=== PATIENT | female | born 1995 | race Two or more races ===

== ENCOUNTER 2018-03-03 12:35 | Emergency (ER) | payer OTHER ==
[~2018-03-03] VITALS: Ht 172.7 cm; Wt 81.6 kg
[2018-03-03 12:54] VITALS: BP 112/83
[2018-03-03] MEDS ORDERED: LORA1TAB47 PO (13:06)
[2018-03-03] MEDS ORDERED: FLUT100D IH (13:06)
--- NOTE | 2018-03-03 13:06 | PHYS DOC ---
Past History Past Medical History: No Pertinent History Past Surgical History: No Surgical History Smoking: Non-smoker Alcohol Use: Rarely Drug Use: None Adult General Chief Complaint Chief Complaint: ALLERGIES [facility] Patient is a 23 year old female who presents with complaining of intermittent episodes of nasal congestion and was at his right eyes for the last 6 months that getting more constant for the last 1 month. Patient complaining of nasal congestion, right eye burning sensation and tearing without yellow discharge, dry cough and mild shortness of breath patient denies taking any over-the- counter medication or seeking medical attention. Patient denies history of previous episodes of allergic symptom and states she moved to a house with concern for mold. Review of Systems Review of Systems Constitutional: Denies fever or chills [] Eyes: Denies change in visual acuity, reports right redness and tearing without discharge HENT: Reports nasal congestion, denies sore throat Respiratory: Reports cough and shortness of breath Cardiovascular: No additional information not addressed in HPI [] GI: Denies abdominal pain, nausea, vomiting, bloody stools or diarrhea [] : Denies dysuria or hematuria [] Musculoskeletal: Denies back pain or joint pain [] Integument: Denies rash or skin lesions [] Neurologic: Denies headache, focal weakness or sensory changes [] Endocrine: Denies polyuria or polydipsia [] All other systems were reviewed and found to be within normal limits, except as documented in this note. Allergies Allergies Allergies Coded Allergies Type Severity Reaction Last Updated Verified No Known Drug Allergies 03/03/18 No Physical Exam Physical Exam Constitutional: Well developed, well nourished, mild distress, non-toxic appearance. [] HENT: Normocephalic, atraumatic, bilateral external ears normal, oropharynx moist, no oral exudates, nasal congestion. [] Eyes: PERRLA, EOMI, right conjunctival mild erythema, no discharge. [] Neck: Normal range of motion, no tenderness, supple, no stridor. [] Cardiovascular:Heart rate regular rhythm, no murmur [] Lungs & Thorax: Bilateral breath sounds clear to auscultation [] Skin: Warm, dry, no erythema, no rash. [] Back: No tenderness, no CVA tenderness. [] Extremities: No tenderness, no cyanosis, no clubbing, ROM intact, no edema. [] Neurologic: Alert and oriented X 3, normal motor function, normal sensory function, no focal deficits noted. [] Psychologic: Affect normal, judgement normal, mood normal. [] Current Patient Data Vital Signs Vital Signs Date Time Temp Pulse Resp B/P (MAP) Pulse Ox O2 Delivery O2 Flow Rate FiO2 03/03/18 12:54 98.4 69 16 96 Room Air EKG EKG [] Radiology/Procedures Radiology/Procedures [] Course & Med Decision Making Course & Med Decision Making discharge: I've spoken with the patient and/or caregivers. I've explained the patient's condition, diagnosis and treatment plan based on information available to me at this time. I've answered the patient's and/or caregivers questions and addressed any concerns. The patient and/or caregivers have a good understanding the patient's diagnosis, condition and treatment plan as can be expected at this point. Vital signs have been stabilized. The patient's condition is stable for discharge from the emergency department. The patient will pursue further outpatient evaluation with her primary care provider or other designated consulting physician as outlined in the discharge instructions. Patient and/or caregivers are agreeable to this plan of care and follow-up instructions have been explained in detail. The patient and/or caregivers have received these instructions in written format and expressed understanding of these discharge instructions. The patient and her caregivers are aware that if any significant change in condition or worsening of symptoms should prompt him to immediately return to this of the closest emergency department. If an emergent department is not readily available I would encourage him to call 911. Dragon Disclaimer Dragon Disclaimer This electronic medical record was generated, in whole or in part, using a voice recognition dictation system. Departure Departure: Impression: Primary Impression: Seasonal allergies Disposition: HOME, SELF-CARE (at 1302) Condition: STABLE Referrals: PCP,NO (PCP) Patient Instructions: Allergic Conjunctivitis, Allergic Rhinitis Additional Instructions: Drink plenty of liquids Follow-up with your primary care physician in 3-5 days Return to ER if not getting better Scripts Fluticasone Propionate (FLOVENT 100MCG DISKUS) 100 Mcg Disk.w.dev 1 PUFF IH BID for allergy, #1 INHALER 0 Refills Prov: MARIA EUGENIA JONES MD 03/03/18 Loratadine/Pseudoephedrine (CLARITIN-D 12 HOUR TABLET) 1 Each Tab.er.12h 1 TAB PO BID for allergy, #40 TAB Prov: MARIA EUGENIA JONES MD 03/03/18 MARIA EUGENIA JONES MD Mar 03, 2018 13:06
== END 2018-03-03 13:14 | disposition home or self-care (01) ==
LOC: ER 12:35
DX: J30.2 Other seasonal allergic rhinitis (principal)
CPT/HCPCS: 99283

== ENCOUNTER 2018-08-16 03:47 | Emergency (ER) | payer OTHER ==
[~2018-08-16] VITALS: Ht 167.6 cm; Wt 81.6 kg
[~2018-08-16 03:47] MED LIST: FLUT100D IH; LORA1TAB47 PO
[2018-08-16 04:07] VITALS: BP 125/76
--- NOTE | 2018-08-16 04:08 | PHYS DOC ---
Past History Past Medical History: No Pertinent History (LISA THACKER Jr., DO) Past Surgical History: No Surgical History (LISA THACKER Jr., DO) Smoking: Non-smoker Alcohol Use: Rarely Drug Use: None (LISA THACKER Jr., DO) Adult General Chief Complaint Chief Complaint: ABDOMINAL PAIN [facility] HPI Patient is a 23-year-old female who presents with complaint of lower abdominal/ pelvic pain for the last couple of days. Patient states she has had nausea but no vomiting. Currently she rates pain to be a 6 out of 10 and states that at its worse it's been an 8 out of 10. She describes pain as crampy. She denies any diarrhea. She also denies any fever. Patient states that nothing seems to really make the pain better or worse. (LISA THACKER Jr., DO) Review of Systems Review of Systems Constitutional: Denies fever or chills [] Respiratory: Denies cough or shortness of breath [] Cardiovascular: No additional information not addressed in HPI [] GI: Complains of lower abdominal pain/cramping with nausea. Denies vomiting or diarrhea [] : Denies dysuria or hematuria [] Musculoskeletal: Denies back pain or joint pain [] All other systems were reviewed and found to be within normal limits, except as documented in this note. (LISA THACKER Jr., DO) Allergies Allergies Allergies Coded Allergies Type Severity Reaction Last Updated Verified No Known Drug Allergies 03/03/18 No (LISA THACKER Jr., DO) Physical Exam Physical Exam Constitutional: Well developed, well nourished, no acute distress, non-toxic appearance. [] HENT: Normocephalic, atraumatic, bilateral external ears normal, oropharynx moist, no oral exudates, nose normal. [] Eyes: PERRLA, EOMI, conjunctiva normal, no discharge. [] Neck: Normal range of motion, no tenderness, supple, no stridor. [] Cardiovascular:Heart rate regular rhythm, no murmur [] Lungs & Thorax: Bilateral breath sounds clear to auscultation [] Abdomen: Bowel sounds normal, soft, with mild suprapubic tenderness. [] Skin: Warm, dry, no erythema, no rash. [] Extremities: No tenderness, no cyanosis, no clubbing, ROM intact. [] Neurologic: Alert and oriented X 3, no focal deficits noted. [] (LISA THACKER Jr., DO) EKG EKG [] (LISA THACKER Jr., DO) Radiology/Procedures Radiology/Procedures [] (LISA THACKER Jr., DO) Course & Med Decision Making Course & Med Decision Making Pertinent Labs and Imaging studies reviewed. (See chart for details) [] (LISA THACKER Jr., DO) Course & Med Decision Making Emergency department he experienced downtime with the computer system during this patient's stay. CT official report is available at this time. The radiologist called me that the preliminary interpretation of ruptured hemorrhagic cyst of the ovary. I discussed this patient with [employer]OVE BOTTOM WORKER, Dr. Ta and he requested a repeat H&H. Repeat H&H was 0.9 g/dL lower than the original. It was his opinion that the patient appeared to be stable enough for discharge. She can follow up outpatient with her [employer]ER. The patient did have some pain requiring 2 mg of morphine. We'll discharge her with a prescription of Smackover 5/325. I stressed that if her condition worsens in any way, she should return to the emergency department. She is stated verbal understanding. She is comfortable with discharge at this time. (HELDER ROBINS DO) Dragon Disclaimer Dragon Disclaimer This electronic medical record was generated, in whole or in part, using a voice recognition dictation system. (LISA THACKER Jr., DO) Departure Departure: Impression: Primary Impression: Hemorrhagic cyst of ovary Disposition: 01 HOME, SELF-CARE Condition: STABLE Referrals: PCP,UNKNOWN (PCP) Patient Instructions: Ovarian Cyst, Olcf-hc-Szcr LISA THACKER Jr., DO Aug 16, 2018 04:08 HELDER ROBINS DO Aug 16, 2018 08:40
[2018-08-16] MEDS ORDERED: ONDANSETRON PF 4 MG/2 ML VIAL. IV ONE ×2 (04:15→08:30)
[2018-08-16] MEDS ORDERED: IV NORMAL SALINE 1,000ML 1,000 ML IV SCH (04:15)
[2018-08-16] MEDS ORDERED: IOHEXOL 300 MG/ML 75 ML VIAL. ONE ×2 (05:59→06:30)
[2018-08-16 08:13] LABS: ALBUMIN 3.4 g/dL (3.4-5.0); ALBUMIN/GLOBULIN RATIO 0.9 (1.0-1.7); CALCIUM 8.6 mg/dL (8.5-10.1); CREATININE 1.1 mg/dL (0.6-1.0); GFR 61.6; POTASSIUM 3.4 mmol/L (3.5-5.1); TOTAL BILIRUBIN 1.2 mg/dL (0.2-1.0); TOTAL PROTEIN 7.2 g/dL (6.4-8.2)
[2018-08-16] MEDS ORDERED: MORPHINE SULFATE 4 MG/ML DISP.SYRIN. IV ONE (08:30)
[2018-08-16] MEDS ORDERED: MORPHINE SULFATE 2 MG/ML DISP.SYRIN. IV ONE (08:30)
[2018-08-16 08:39] LABS: HEMATOCRIT 33.9 % (36.0-47.0); HEMOGLOBIN 11.4 g/dL (12.0-15.5)
[2018-08-16] MEDS ORDERED: HYDROcodone/APAP 5/325MG 1 TAB TABLET ONE (08:43)
[2018-08-16] MEDS ORDERED: ONDANSETRON ODT 4 MG TAB.RAPDIS ONE (08:43)
[2018-08-16] MEDS ORDERED: LORazepam 1 MG TABLET PO ONE (08:45)
[2018-08-16 08:48] LABS: BASO # 0.1 x10^3/uL (0.0-0.2); BASO % 1 % (0-3); EOS # 0.2 x10^3/uL (0.0-0.7); EOS % 2 % (0-3); HEMATOCRIT 35.5 % (36.0-47.0); HEMOGLOBIN 12.3 g/dL (12.0-15.5); LYMPH # 2.5 x10^3/uL (1.0-4.8); LYMPH % 23 % (24-48); MEAN CORPUSCULAR HEMOGLOBIN 30 pg (25-35); MEAN CORPUSCULAR HGB CONC 35 g/dL (31-37); MEAN CORPUSCULAR VOLUME 85 fL (79-100); MONO # 0.7 x10^3/uL (0.0-1.1); MONO % 7 % (0-9); NEUT # 7.2 x10^3uL (1.8-7.7); NEUT % 67 % (31-73); PLATELET COUNT 317 x10^3/uL (140-400); RED BLOOD COUNT 4.17 x10^6/uL (3.50-5.40); RED CELL DISTRIBUTION WIDTH 13.4 % (11.5-14.5); WHITE BLOOD COUNT 10.7 x10^3/uL (4.0-11.0)
[2018-08-16] MEDS ORDERED: ONDANSETRON ODT 4 MG TAB.RAPDIS PO ONE (09:00)
[2018-08-16] MEDS ORDERED: HYDROcodone/APAP 5/325MG 1 TAB TABLET PO ONE (09:00)
[2018-08-16 09:04] LABS: BILIRUBIN,URINE NEG (NEG); CLARITY,URINE HAZY; COLOR,URINE AMBER; GLUCOSE,URINE NEG (NEG); NITRITE,URINE NEG (NEG); UROBILINOGEN,URINE 1 mg/dL (0.2 mg/dL)
[2018-08-16 09:05] LABS: AMORPHOUS SEDIMENT,UR PRESENT /HPF; BACTERIA,URINE FEW /HPF (0-FEW); RBC,URINE 0 /HPF (0-2); SQUAMOUS EPITHELIAL CELL,UR MOD /LPF; WBC,URINE 0 /HPF (0-4)
--- NOTE | 2018-08-16 09:42 | RAD ---
Exam performed: CT scan of the abdomen and pelvis with contrast Clinical Indication: Abdominal pain for 2 days Date of Service: 08/16/2018 , comparison: None available Technique: Contiguous helical acquisitions are obtained from the lung bases to the pelvis during intravenous administration of [75 cc of Omnipaque 300]. In addition oral contrast was also given. Sagittal and coronal reformatted images were obtained and reviewed. CT abdomen findings: The lung bases appear essentially clear. The visualized heart is normal The liver, spleen ,gall bladder and pancreas appears unremarkable. Both adrenal glands and bilateral kidneys appear normal with symmetric excretion of contrast via both kidneys. The small bowel loops appear nondilated and unremarkable. Aorta is normal in caliber. There is no retroperitoneal lymphadenopathy or mass lesions. Visualized appendix is normal. No bowel related inflammatory stranding is noted. The urinary bladder is well distended and normal . There is moderate fluid in the right hemipelvis. Interrogation of bone windows demonstrates no obvious bony abnormality. No pelvic masses are seen. Sagittal and coronal reformatted images were obtained and reviewed which demonstrate no additional findings. Impression abdomen and pelvis : 1. No acute intra-abdominal or pelvic process is detected. 2. Moderate fluid in the right hemipelvis probably physiological from a ruptured follicle PQRS Compliance Statement: One or more of the following individualized dose reduction techniques were utilized for this examination: 1. Automated exposure control 2. Adjustment of the mA and/or kV according to patient size 3. Use of iterative reconstruction technique Electronically signed by: Aidee Hernandez MD (08/16/2018 9:39 AM) [facility]
== END 2018-08-16 08:30 | disposition home or self-care (01) ==
LOC: ER 03:47
DX: N83.201 Unspecified ovarian cyst, right side (principal)
CPT/HCPCS: 36415; 74177; 80053; 81001; 81025; 83690; 85014; 85018; 85025; 99285; Q9967

== ENCOUNTER 2018-12-20 22:51 | Emergency (ER) | payer OTHER ==
[~2018-12-20] VITALS: Ht 167.6 cm; Wt 79.4 kg
[2018-12-20 23:00] VITALS: BP 123/67
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
[2018-12-20 23:21] LABS: CLARITY,URINE HAZY; COLOR,URINE AMBER; GLUCOSE,URINE NEG (NEG)
[2018-12-20 23:22] LABS: BACTERIA,URINE FEW /HPF (0-FEW); BILIRUBIN,URINE NEG (NEG); NITRITE,URINE NEG (NEG); RBC,URINE OCC /HPF (0-2); SQUAMOUS EPITHELIAL CELL,UR FEW /LPF; UROBILINOGEN,URINE 0.2 mg/dL (0.2 mg/dL); WBC,URINE OCC /HPF (0-4)
[2018-12-20 23:37] LABS: BASO # 0.1 x10^3/uL (0.0-0.2); BASO % 1 % (0-3); EOS # 0.1 x10^3/uL (0.0-0.7); EOS % 1 % (0-3); HEMATOCRIT 32.4 % (36.0-47.0); HEMOGLOBIN 11.5 g/dL (12.0-15.5); LYMPH # 1.9 x10^3/uL (1.0-4.8); LYMPH % 14 % (24-48); MEAN CORPUSCULAR HEMOGLOBIN 31 pg (25-35); MEAN CORPUSCULAR HGB CONC 36 g/dL (31-37); MEAN CORPUSCULAR VOLUME 87 fL (79-100); MONO # 0.5 x10^3/uL (0.0-1.1); MONO % 3 % (0-9); NEUT # 11.2 x10^3uL (1.8-7.7); NEUT % 82 % (31-73); PLATELET COUNT 317 x10^3/uL (140-400); RED BLOOD COUNT 3.74 x10^6/uL (3.50-5.40); WHITE BLOOD COUNT 13.7 x10^3/uL (4.0-11.0)
[2018-12-20 23:49] LABS: ALBUMIN 3.2 g/dL (3.4-5.0); ALBUMIN/GLOBULIN RATIO 0.8 (1.0-1.7); CREATININE 0.8 mg/dL (0.6-1.0); GFR 88.9; POTASSIUM 3.3 mmol/L (3.5-5.1); TOTAL BILIRUBIN 0.7 mg/dL (0.2-1.0); TOTAL PROTEIN 7.2 g/dL (6.4-8.2)
--- NOTE | 2018-12-21 00:48 | RAD ---
Obstetric ultrasound first trimester: Reason for examination: Abdominal pain. . Transabdominal ultrasound examination of the pelvis was performed. Uterus measures 13 x 9.9 x 8.7 cm in greatest dimension. Single viable intrauterine gestation is present. Gestational sac has a normal contour. Fetus is present with a crown-rump length of 7.4 cm corresponding to gestational age of 13 weeks 4 days with estimated date of confinement of 06/23/2019. Cardiac activity is seen with a cardiac rate of 149 bpm. No adnexal masses are identified. The ovaries are however not visualized. No free fluid is seen. IMPRESSION: Single viable intrauterine gestation with mean gestational age of 13 weeks 4 days and estimated date of confinement of 06/23/2019. This corresponds adequately with clinical dates. Electronically signed by: Tasha Fortune MD (12/21/2018 12:45 AM) [id number]
== END 2018-12-21 00:15 | disposition home or self-care (01) ==
LOC: ER 22:51
DX: O9A.211 Injury, poisoning and certain other consequences of external causes complicating pregnancy, first trimester (principal); R10.9 Unspecified abdominal pain; Z3A.13 13 weeks gestation of pregnancy
CPT/HCPCS: 36415; 76801; 80053; 81001; 84702; 85025; 99285